=== PATIENT | female | born 1965 | race Caucasian/White ===

== ENCOUNTER → 2020-04-20 | Outpatient (CLI) | payer MEDICAID ==
[~2020-04-20] MED LIST: RT-ALBUTEROL SULF 2.5 MG/3 ML PRE-MIX VIAL INH ONE
== END ==
LOC: RT 14:35
PROVIDERS: ATTEND Nurse Practitioner Family
DX: Z12.31 Encounter for screening mammogram for malignant neoplasm of breast (principal); J45.909 Unspecified asthma, uncomplicated
CPT/HCPCS: 77063; 77067; 94060; 94726; 94729

== ENCOUNTER 2020-07-14 19:49 | Emergency (ER) | payer MEDICAID ==
[~2020-07-14] VITALS: Ht 162 cm; Wt 56.0 kg
--- NOTE | 2020-07-14 20:08 | ED General ---
General Stated Complaint: WORSENING COVID SYMPTOMS/COVID TEST UNK Source of Information: Patient Exam Limitations: No Limitations History of Present Illness Date Seen by Provider: Jul 14, 2020 Time Seen by Provider: 20:07 Initial Comments To ER with cough shortness of breath sore throat malaise since Saturday. She was swabbed for rotavirus on Saturday at [facility] but doesn't have the results yet. No fevers. She does have a history of COPD. Timing/Duration: 1-2 Days Severity: Moderate Associated Systoms: Cough Allergies and Home Medications Allergies Coded Allergies: Penicillins (Unverified Allergy, Severe, Hives, 07/14/20) Patient Home Medication List Home Medication List Reviewed: Yes Review of Systems Review of Systems Constitutional: see HPI; No chills, No fever; malaise, weakness EENTM: see HPI Respiratory: see HPI, cough Cardiovascular: no symptoms reported Genitourinary: no symptoms reported Musculoskeletal: no symptoms reported Skin: no symptoms reported Psychiatric/Neurological: No Symptoms Reported Hematologic/Lymphatic: No Symptoms Reported Immunological/Allergic: no symptoms reported Physical Exam Vital Signs Vital Signs - First Documented 07/14/20 20:10 Temp 37.1 Pulse 111 Resp 20 B/P (MAP) 144/82 (102) Pulse Ox 97 Capillary Refill : Height, Weight, BMI Height: '" Weight: lbs. oz. kg; BMI Method: General Appearance: No Apparent Distress, WD/WN Eyes: Bilateral Eye Normal Inspection, Bilateral Eye PERRL, Bilateral Eye EOMI Neck: Full Range of Motion, Normal Inspection Respiratory: No Accessory Muscle Use, No Respiratory Distress, Decreased Breath Sounds, Wheezing Cardiovascular: Regular Rate, Rhythm, Normal Peripheral Pulses Gastrointestinal: Non Tender, Soft Extremity: Normal Capillary Refill, Normal Inspection Neurologic/Psychiatric: Alert, Oriented x3 Skin: Normal Color, Warm/Dry Progress/Results/Core Measures Suspected Sepsis SIRS Temperature: Pulse: Respiratory Rate: Laboratory Tests 07/14/20 20:09: White Blood Count 11.5H Blood Pressure / Mean: Laboratory Tests 07/14/20 20:09: Creatinine 0.98, Platelet Count 204, Total Bilirubin 0.5 Results/Orders Lab Results Laboratory Tests Test 07/14/20 20:09 Range/Units White Blood Count 11.5 H 4.3-11.0 10^3/uL Red Blood Count 4.44 3.80-5.11 10^6/uL Hemoglobin 13.7 11.5-16.0 g/dL Hematocrit 41 35-52 % Mean Corpuscular Volume 92 80-99 fL Mean Corpuscular Hemoglobin 31 25-34 pg Mean Corpuscular Hemoglobin Concent 34 32-36 g/dL Red Cell Distribution Width 12.1 10.0-14.5 % Platelet Count 204 130-400 10^3/uL Mean Platelet Volume 9.3 9.0-12.2 fL Immature Granulocyte % (Auto) 1 % Neutrophils (%) (Auto) 77 H 42-75 % Lymphocytes (%) (Auto) 11 L 12-44 % Monocytes (%) (Auto) 8 0-12 % Eosinophils (%) (Auto) 3 0-10 % Basophils (%) (Auto) 0 0-10 % Neutrophils # (Auto) 8.9 H 1.8-7.8 10^3/uL Lymphocytes # (Auto) 1.3 1.0-4.0 10^3/uL Monocytes # (Auto) 0.9 0.0-1.0 10^3/uL Eosinophils # (Auto) 0.4 H 0.0-0.3 10^3/uL Basophils # (Auto) 0.0 0.0-0.1 10^3/uL Immature Granulocyte # (Auto) 0.1 0.0-0.1 10^3/uL Sodium Level 139 135-145 MMOL/L Potassium Level 3.8 3.6-5.0 MMOL/L Chloride Level 101 98-107 MMOL/L Carbon Dioxide Level 25 21-32 MMOL/L Anion Gap 13 5-14 MMOL/L Blood Urea Nitrogen 10 7-18 MG/DL Creatinine 0.98 0.60-1.30 MG/DL Estimat Glomerular Filtration Rate 58 BUN/Creatinine Ratio 10 Glucose Level 102 70-105 MG/DL Calcium Level 9.5 8.5-10.1 MG/DL Corrected Calcium 9.1 8.5-10.1 MG/DL Total Bilirubin 0.5 0.1-1.0 MG/DL Aspartate Amino Transf (AST/SGOT) 18 5-34 U/L Alanine Aminotransferase (ALT/SGPT) 22 0-55 U/L Alkaline Phosphatase 117 40-136 U/L C-Reactive Protein High Sensitivity 8.38 H 0.00-0.50 MG/DL B-Type Natriuretic Peptide < 10.0 <100.0 PG/ML Total Protein 8.3 H 6.4-8.2 GM/DL Albumin 4.5 3.2-4.5 GM/DL My Orders Orders - BREANNE SHEFFIELD APRN Cbc With Automated Diff (07/14/20 19:53) Hs C Reactive Protein (07/14/20 19:53) BNP (07/14/20 19:53) Comprehensive Metabolic Panel (07/14/20 19:53) Chest 1 View, Ap/Pa Only (07/14/20 19:53) Covid 19 Inhouse Test (07/14/20 19:53) Albuterol Inhaler (Ventolin Hfa) (07/14/20 22:00) Vital Signs/I&O 07/14/20 20:10 Temp 37.1 Pulse 111 Resp 20 B/P (MAP) 144/82 (102) Pulse Ox 97 Capillary Refill : Diagnostic Imaging Diagonstic Imaging: Xray Plain Films/CT/US/NM/MRI: chest Comments NAME: YOLANDA MON [facility] REC#: [id number] PT STATUS: REG ER : 1965 PHYSICIAN: BREANNE SHEFFIELD APRN ADMIT DATE: 07/14/20/ER Draft Date of Exam:07/14/20 CHEST 1 VIEW, AP/PA ONLY INDICATION: Cough. COMPARISON: None. EXAMINATION: Single view of the chest was obtained. FINDINGS: There is some blunting of the right costophrenic angle which may be atelectasis. Otherwise, lungs are clear. The heart is normal. There is no pneumothorax or effusion. There is some hyperexpansion, likely COPD. Osseous structures are normal. IMPRESSION: Probable atelectasis right base. Follow-up recommended. Dictated on workstation # [id number] Dict: 07/14/202025 Trans: 07/14/202031 [facility] [id number] Interpreted by: JAD ALATORRE Electronically signed by: Departure Impression Primary Impression: RLL pneumonia Qualified Codes: J18.9 - Pneumonia, unspecified organism Disposition: 01 HOME, SELF-CARE Condition: Stable Departure-Patient Inst. Decision time for Depature: 20:46 Referrals: [facility] (PCP/Family) Primary Care Physician Patient Instructions: Pneumonia, Adult (DC) Add. Discharge Instructions: 1. Steroids and antibiotics as directed 2. Return to ER for any worsening symptoms 3. Follow up with your doctor next week Scripts Albuterol Sulfate (PROAIR HFA) 1 Puff Puff 2 PUFF IH Q4H PRN for SHORTNESS OF BREATH, #1 PUFF 1 PUFF = 90 MCG Prov: BREANNE SHEFFIELD APRN 07/14/20 Prednisone (Prednisone) 20 Mg Tab 40 MG PO DAILY, #6 TAB 0 Refills Prov: BREANNE SHEFFIELD APRN 07/14/20 Cefdinir (Cefdinir) 300 Mg Capsule 300 MG PO BID, #14 CAP Prov: BREANNE SHEFFIELD APRN 07/14/20 BREANNE SHEFFIELD APRN Jul 14, 2020 20:08
[2020-07-14 20:14] LABS: BASOPHILS % (AUTO) 0 % (0-10); EOSINOPHILS # (AUTO) 0.4 10^3/uL (0.0-0.3); EOSINOPHILS % (AUTO) 3 % (0-10); HEMATOCRIT 41 % (35-52); HEMOGLOBIN 13.7 g/dL (11.5-16.0); LYMPHOCYTES # (AUTO) 1.3 10^3/uL (1.0-4.0); LYMPHOCYTES % (AUTO) 11 % (12-44); MEAN CORPUSCULAR HEMOGLOBIN 31 pg (25-34); MEAN CORPUSCULAR HGB CONC 34 g/dL (32-36); MEAN CORPUSCULAR VOLUME 92 fL (80-99); MEAN PLATELET VOLUME 9.3 fL (9.0-12.2); MONOCYTES # (AUTO) 0.9 10^3/uL (0.0-1.0); MONOCYTES % (AUTO) 8 % (0-12); NEUTROPHILS # (AUTO) 8.9 10^3/uL (1.8-7.8); NEUTROPHILS % (AUTO) 77 % (42-75); PLATELET COUNT 204 10^3/uL (130-400); WHITE BLOOD COUNT 11.5 10^3/uL (4.3-11.0)
[2020-07-14 20:33] LABS: ALBUMIN 4.5 GM/DL (3.2-4.5); BILIRUBIN,TOTAL 0.5 MG/DL (0.1-1.0); CALCIUM 9.5 MG/DL (8.5-10.1); CREATININE SERUM 0.98 MG/DL (0.60-1.30); POTASSIUM 3.8 MMOL/L (3.6-5.0); TOTAL PROTEIN 8.3 GM/DL (6.4-8.2)
--- NOTE | 2020-07-14 20:33 | Diagnostic Imaging Report ---
INDICATION: Cough. COMPARISON: None. EXAMINATION: Single view of the chest was obtained. FINDINGS: There is some blunting of the right costophrenic angle which may be atelectasis. Otherwise, lungs are clear. The heart is normal. There is no pneumothorax or effusion. There is some hyperexpansion, likely COPD. Osseous structures are normal. IMPRESSION: Probable atelectasis right base. Follow-up recommended. Dictated by: Dictated on workstation # [id number]
[2020-07-14] MEDS ORDERED: CEFD300C3 PO (20:47)
[2020-07-14] MEDS ORDERED: PRD20T PO (20:47)
[2020-07-14] MEDS ORDERED: RT-ALBUINH IH (20:47)
[2020-07-14] MEDS ORDERED: cefTRIAXone FOR IV USE 1,000 MG in WATER (STERILE) FOR INJECTION 10 ML IV ONE (21:00)
[2020-07-14 21:11] VITALS: BP 128/69
[2020-07-14] MEDS ORDERED: RT-ALBUTEROL INHALER HFA (VENTOLIN HFA) 18 GM IH SCH (22:00)
== END 2020-07-14 21:12 | disposition home or self-care (01) ==
LOC: EDUNIT# 19:49 → ER 19:51
DX: J18.1 Lobar pneumonia, unspecified organism (principal); Z20.828 Contact with and (suspected) exposure to other viral communicable diseases; Z88.0 Allergy status to penicillin
CPT/HCPCS: 71045; 80053; 83880; 85025; 86141; 94640; 99284; U0002; 36415; 87635

== ENCOUNTER 2020-10-02 10:29 | Emergency (ER) | payer MEDICAID ==
[~2020-10-02] VITALS: Ht 162.5 cm; Wt 58.9 kg
[~2020-10-02 10:29] MED LIST changes: +CEFD300C3 PO; +PRD20T PO; +RT-ALBUINH IH; -RT-ALBUTEROL SULF 2.5 MG/3 ML PRE-MIX VIAL INH ONE
[2020-10-02 10:35] VITALS: BP 137/81
[2020-10-02] MEDS ORDERED: KETOROLAC 60 MG/2 ML VIAL IM ONE (11:00)
[2020-10-02] MEDS ORDERED: ORPHENADRINE 60 MG/2 ML (NORFLEX) AMP (ED ONLY) IM ONE (11:00)
[2020-10-02 11:07] LABS: BILIRUBIN,URINE NEGATIVE (NEGATIVE); CLARITY,URINE CLEAR; COLOR,URINE YELLOW; GLUCOSE, URINE (UA) NEGATIVE (NEGATIVE); KETONES,URINE NEGATIVE (NEGATIVE); LEUKOCYTE ESTERASE ,URINE NEGATIVE (NEGATIVE); NITRITE,URINE NEGATIVE (NEGATIVE); PROTEIN,URINE NEGATIVE (NEGATIVE)
[2020-10-02] MEDS ORDERED: CYCL10TA9 PO (11:08)
--- NOTE | 2020-10-02 11:08 | ED Fall/Injury ---
General Chief Complaint: Back Problems Stated Complaint: FALL, BACK PAIN Nursing Triage Note: Pt ambulatory to ED. Pt reports dog's leash got wrapped around pt's L leg on ' causing pt to fall on R side. Pt reports lower back pain that radiates down the R leg and c/o lower abdominal pain. Pt describes pain in back as "pinching." Pt does report head hit concrete in fall, but denies LOC or complaints related to head at this time. Source: patient Exam Limitations: no limitations History of Present Illness Date Seen by Provider: Oct 02, 2020 Time Seen by Provider: 10:45 Initial Comments RightPatient presents to the ER by private conveyance from home with chief complaint of 4 days ago she was walking her dog and the leash tripped her onto her right side. She has had minor problems with her back visiting the chiropractor in the past but no surgeries or major imaging. She has not had any fractures or recent trauma otherwise. She has pain and spasm side of her back radiating down into her suprapubic pelvis area. She denies dysuria or hematuria. No history of kidney stone. She says she is not having nausea fever chills cough shortness of air. She does not have saddle anesthesia but she does have some paresthesias going down her right buttock to the level of the mid thigh. She has tenderness worse on her right and no midline low back tenderness. She took 2 ibuprofen earlier today which seemed to help some. Allergies and Home Medications Allergies Coded Allergies: Penicillins (Unverified Allergy, Severe, Hives, 07/14/20) Home Medications Albuterol Sulfate 1 Puff Puff, 2 PUFF IH Q4H PRN for SHORTNESS OF BREATH 1 PUFF = 90 MCG Prescribed by: BREANNE SHEFFIELD on 07/14/202046 Cefdinir 300 Mg Capsule, 300 MG PO BID Prescribed by: BREANNE SHEFFIELD on 07/14/202046 Prednisone 20 Mg Tab, 40 MG PO DAILY Prescribed by: BREANNE SHEFFIELD on 07/14/202046 Patient Home Medication List Home Medication List Reviewed: Yes Review of Systems Review of Systems Constitutional: No chills, No fever Eyes: Denies Blindness, Denies Drainage Ears, Nose, Mouth, Throat: denies ear pain, denies ear discharge Respiratory: No cough, No short of breath Cardiovascular: No edema, No Hx of Intervention Gastrointestinal: No abdominal pain, No nausea, No vomiting Genitourinary: No discharge, No dysuria Musculoskeletal: see HPI, back pain All Other Systems Reviewed Negative Unless Noted: Yes Past Ogtongs-Zsxhfg-Slrquo Hx Patient Social History Alcohol Use: Occasionally Uses Recreational Drug Use: Yes Drug of Choice: marijuana, meth Smoking Status: Former Smoker Type Used: Cigarettes Former Smoker, Quit: Jun 30, 2017 Recent Foreign Travel: No Contact w/Someone Who Travel: No Recent Infectious Disease Expo: No Recent Hopitalizations: No Immunizations Up To Date Date of Influenza Vaccine: Jun 14, 2020 Seasonal Allergies Seasonal Allergies: Yes Past Medical History Surgeries: Yes Tubal Ligation Respiratory: Yes COPD Currently Using CPAP: No Currently Using BIPAP: No Cardiac: No Neurological: No [employer] History: Tubal Ligation Genitourinary: No Gastrointestinal: Yes Gastroesophageal Reflux Musculoskeletal: No Endocrine: No HEENT: No Cancer: No Psychosocial: Yes Depression Integumentary: No Physical Exam Vital Signs Vital Signs - First Documented 10/02/20 10:35 Temp 36.2 Pulse 87 Resp 15 B/P (MAP) 137/81 (99) Pulse Ox 97 O2 Delivery Room Air Capillary Refill : Less Than 3 Seconds Height, Weight, BMI Height: '" Weight: lbs. oz. kg; 22.00 BMI Method: General Appearance: WD/WN, mild distress HEENT: PERRL/EOMI, pharynx normal Neck: full range of motion, normal inspection Cardiovascular: normal peripheral pulses, regular rate, rhythm Respiratory: no respiratory distress, no accessory muscle use Gastrointestinal: non tender, soft Back: normal inspection, no CVA tenderness, no vertebral tenderness (No step- off or deformity), muscle spasm (Right side worse than left) Extremities: normal range of motion, no calf tenderness Neurologic/Psychiatric: alert, normal mood/affect, oriented x 3 Skin: normal color, warm/dry [place] Coma Score Best Eye Response: (4) Open Spontaneously Best Verbal Response: (5) Oriented Best Motor Response: (6) Obeys Commands Igles[place] Total: 15 Progress/Results/Core Measures Results/Orders My Orders Orders - KANDICE REHMAN Ketorolac Injection (Toradol Injection) (10/02/20 11:00) Orphenadrine Inj (Ed Only) (Norflex Inje (10/02/20 11:00) Ua Culture If Indicated (10/02/20 10:59) Vital Signs/I&O 10/02/20 10:35 Temp 36.2 Pulse 87 Resp 15 B/P (MAP) 137/81 (99) Pulse Ox 97 O2 Delivery Room Air Blood Pressure Mean: 99 Progress Progress Note : Time: 11:04 Progress Note Fall with new onset lumbago, paraspinous muscle spasms and sciatica. No red flags. Plan to get a urinalysis for her suprapubic discomfort. She has a nonsurgical abdomen with normal vital signs. Will instruct her to follow-up with physical therapy if her symptoms not improving in a week. We will give her return precautions. We will also give her Norflex, a prescription for cyclobenzaprine and Toradol. Departure Impression Primary Impression: Lumbago with sciatica, right side Qualified Codes: M54.41 - Lumbago with sciatica, right side Additional Impressions: Fall Qualified Codes: W19.XXXA - Unspecified fall, initial encounter Lumbar paraspinal muscle spasm Disposition: HOME, SELF-CARE Condition: Stable Departure-Patient Inst. Decision time for Depature: 11:06 Referrals: [facility] (PCP/Family) Primary Care Physician Patient Instructions: Back Muscle Strain (DC), Sciatica, Back Flexion Stretching Exercises, Using Cold for Pain, Using Heat for Pain Add. Discharge Instructions: Drink plenty of fluids. Tylenol 1000 mg every 8 hours as necessary for pain. Ibuprofen 800 mg every 8 hours as necessary for pain. You may benefit from using ibuprofen [id number] regardless of if it helps your pain as it will reduce inflammation and help you feel better sooner. Cyclobenzaprine 1 tablet every 8 hours as necessary for muscle spasms in your back. This will cause drowsiness. If you not seeing improvement in the first 1 to 2 weeks then you should follow- up with either a primary care doctor or you may get a no upfront cost initial evaluation by [facility] by calling for an appointment at . Heating pads can be helpful for pain. Ice your back for the first couple days for 20 minutes every 2 hours while awak e. Topical creams such as icy hot, Biofreeze or capsaicin oil can be helpful. All discharge instructions reviewed with patient and/or family. Voiced understanding. Scripts Cyclobenzaprine HCl (Cyclobenzaprine HCl) 10 Mg Tablet 10 MG PO Q8H PRN for SPASMS, #15 TAB 0 Refills Prov: KANDICE REHMAN 10/02/20 KANDICE REHMAN Oct 02, 2020 11:08
[2020-10-02 11:25] LABS: BACTERIA,URINE NEGATIVE /HPF; SQUAMOUS EPITHELIAL CELL,UR 0-2 /HPF; WBC,URINE 0-2 /HPF
== END 2020-10-02 11:38 | disposition home or self-care (01) ==
LOC: EDUNIT# 10:29 → ER 10:31
DX: M54.41 Lumbago with sciatica, right side (principal); M62.830 Muscle spasm of back; J44.9 Chronic obstructive pulmonary disease, unspecified; R40.2360 Coma scale, best motor response, obeys commands, unspecified time; R40.2140 Coma scale, eyes open, spontaneous, unspecified time; R40.2250 Coma scale, best verbal response, oriented, unspecified time; Z87.891 Personal history of nicotine dependence; Z79.52 Long term (current) use of systemic steroids; Z88.0 Allergy status to penicillin; W01.198A Fall on same level from slipping, tripping and stumbling with subsequent striking against other object, initial encounter; Y93.K1 Activity, walking an animal
CPT/HCPCS: 81000; 99284

== ENCOUNTER → 2021-05-15 | Outpatient (CLI) | payer MEDICAID ==
[~2021-05-15] MED LIST changes: +CYCL10TA9 PO
--- NOTE | 2021-05-15 12:58 | Diagnostic Imaging Report ---
Indication: Routine screening. Comparison is made with prior mammogram from 04/20/2020 and 03/16/2019. 2-D and 3-D bilateral screening mammography was performed with CAD. Scattered fibroglandular densities are identified bilaterally. Fibronodular parenchymal pattern is stable. No spiculated mass or malignant-appearing microcalcifications are seen. Axillae are unremarkable. IMPRESSION: BI-RADS Category 2 No mammographic features suspicious for malignancy are identified. ACR BI-RADS Category 2: Benign findings. Result letter will be mailed to the patient. Note: At least 10% of breast cancer is not imaged by mammography. Dictated by: Dictated on workstation # [id number]
== END ==
LOC: RAD 09:29
PROVIDERS: ATTEND Nurse Practitioner Family
DX: Z12.31 Encounter for screening mammogram for malignant neoplasm of breast (principal)
CPT/HCPCS: 77063; 77067

== ENCOUNTER 2022-01-26 17:59 | Emergency (ER) | payer MEDICAID ==
[~2022-01-26] VITALS: Ht 162.6 cm; Wt 65.8 kg
[~2022-01-26 17:59] MED LIST changes: +CYCL10TA25 PO; -CYCL10TA9 PO
[2022-01-26] MEDS ORDERED: NS IV 500 ML 500 ML IV ONE (18:30)
--- NOTE | 2022-01-26 18:33 | ED Headache ---
General Chief Complaint: Head/Cervical Problems Stated Complaint: HEAD PAIN X 3 DAYS/L SIDE NUMBNESS Source: patient Exam Limitations: no limitations History of Present Illness Date Seen by Provider: Jan 26, 2022 Time Seen by Provider: 18:05 Initial Comments The patient presents ER by private conveyance from home with chief complaint that Saturday, 2 days prior to arrival she was just sitting down in her easy chair in her living room when she started having a worst headache of her life, 10 out of 10. She says she has no history of migraines or chronic headaches. She has had mid headaches before but nothing like this. She said it started low in the back of her neck and for she thought was one of her chronic pinched nerves but it traveled up her occiput bilaterally to the top of her parietal scalp and landed in her frontal forehead. She said this headache has been coming on and off a few hours at a time for the past couple days. Today she was standing at the sink doing dishes when it came on and she had a few momentary seconds of blurred vision bilaterally as well as today she started experiencing some tingling pins and needle sensation in her left arm all the way down to her fingertips as well as her left leg down to her foot. She has not had back surgery. She has not had trauma. She is not on blood thinners. He has a history of hypertension hyperlipidemia and is a daily cannabis user. She denies recreational drug use. She does drink about 6 shots of whiskey on a daily basis usually at night. She is on B12 and followed by Annabel Rooney for primary care. She is on statin. She does not have a history of heart disease stroke although her father has a history of stents either in his heart or his neck and her sister of a heart attack at age 48. The patient does not use nicotine products. She is not having any nausea fevers chills cough shortness of air. Allergies and Home Medications Allergies Coded Allergies: Penicillins (Unverified Allergy, Severe, Hives, 07/14/20) Patient Home Medication List Home Medication List Reviewed: Yes Albuterol Sulfate (Proair Hfa) 1 Puff Puff, 2 PUFF IH Q4H PRN for SHORTNESS OF BREATH Prescribed by: BREANNE SHEFFIELD on 07/14/202046 Cefdinir (Cefdinir) 300 Mg Capsule, 300 MG PO BID Prescribed by: BREANNE SHEFFIELD on 07/14/202046 Cyclobenzaprine HCl (Cyclobenzaprine HCl) 10 Mg Tablet, 10 MG PO Q8H PRN for SPASMS Prescribed by: KANDICE REHMAN on 10/02/20 110 Ondansetron (Ondansetron Odt) 4 Mg Tab.rapdis, 4-8 MG PO Q6H PRN for NAUSEA/VOMITING Prescribed by: KANDICE REHMAN on 01/26/222234 Prednisone (Prednisone) 20 Mg Tab, 40 MG PO DAILY Prescribed by: BREANNE SHEFFIELD on 07/14/202046 Review of Systems Review of Systems Constitutional: No chills, No diaphoresis Eyes: Denies Blindness, Denies Blurred Vision Ears, Nose, Mouth, Throat: denies ear pain, denies ear discharge Respiratory: No cough, No short of breath Cardiovascular: No chest pain, No edema Gastrointestinal: No abdominal pain, No constipation, No diarrhea Genitourinary: No discharge, No dysuria : No Musculoskeletal: No back pain, No joint pain All Other Systems Reviewed Negative Unless Noted: Yes Past Pwedepu-Dfylew-Udmuzg Hx Patient Social History Tobacco Use?: No Smoking Status: Never a Smoker Smokeless Tobacco Frequency: Never a User Use of E-Cig and/or Vaping dev: No Use of E-Cig and/or Vaping Casimiro: Never a User Substance use?: Yes Substance type: Marijuana Substance frequency: Daily Alcohol Use?: Yes Alcohol type: Hard Liquor Alcohol Frequency: Daily Pt feels they are or have been: No Seasonal Allergies Seasonal Allergies: Yes Past Medical History Surgeries: Yes Tubal Ligation Respiratory: Yes COPD Currently Using CPAP: No Currently Using BIPAP: No Cardiac: No Neurological: No PROCESS DEVELOPER History: Tubal Ligation Genitourinary: No Gastrointestinal: Yes Gastroesophageal Reflux Musculoskeletal: No Endocrine: No HEENT: No Cancer: No Psychosocial: Yes Depression Integumentary: No Physical Exam Vital Signs Vital Signs - First Documented 01/26/22 01/26/22 18:08 22:40 Temp 36.0 Pulse 103 Resp 15 B/P (MAP) 134/72 (92) Pulse Ox 96 O2 Delivery Room Air Capillary Refill : Height, Weight, BMI Height: '" Weight: lbs. oz. kg; 22.00 BMI Method: General Appearance: WD/WN, no apparent distress HEENT: PERRL/EOMI, normal ENT inspection, TMs normal; No pharynx normal (Dry oral mucous) Neck: non-tender, full range of motion, supple, normal inspection Cardiovascular: normal peripheral pulses, regular rate, rhythm, no edema Respiratory: lungs clear, normal breath sounds, no respiratory distress, no accessory muscle use Gastrointestinal: normal bowel sounds, non tender, soft Extremities: normal range of motion, non-tender, normal capillary refill Psychiatric: alert, oriented x 3 Crainal Nerves: normal hearing, normal speech, PERRL (No horizontal started nystagmus) Motor/Sensory: no motor deficit, no sensory deficit, no pronator drift Skin: normal color, warm/dry Onset of Symptoms Date of Onset of Symptoms: Jan 24, 2022 Symptoms onset unknown: Yes NIH Stroke Scale Assessment Select: Initial Level of Consciousness: 0=Alert (0), Level of Consciousness- Questions: 0=Answers both month/age (0), LOC Commands: 0=Performs both tasks (0), Gaze: Normal (0), Visual Etienne: 0=No visual loss (0), Facial Movement (Facial Paresis): 0=Normal symmetrical mnt (0), Motor Function-Arms Right: 0=No drift (0), Motor Function-Arms Left: 0=No drift (0), Motor Function-Legs Right: 0=No drift (0), Motor Function-Legs Left: 0=No drift (0), Limb Ataxia: 0=Absent (0), Sensory: 0=Normal:no loss (0), Best Language: 0=No aphasia (0), Dysarthria: 0=Normal (0), Extinction & Inattention: 0=No abnormality (0), Total: 0 Stroke Thrombolytic Exclusion Age 18 or Over: Yes IV - TPa Received IV - TPa Procedure Performed?: No (No lateralizing symptoms. No benefit to outweigh the risk. We will start the window of time.) Progress/Results/Core Measures Results/Orders Lab Results Laboratory Tests Test 01/26/22 18:15 01/26/22 18:45 01/26/22 19:35 01/26/22 21:09 Range/Units White Blood Count 6.7 4.3-11.0 10^3/uL Red Blood Count 4.19 3.80-5.11 10^6/uL Hemoglobin 13.9 11.5-16.0 g/dL Hematocrit 40 35-52 % Mean Corpuscular Volume 95 80-99 fL Mean Corpuscular Hemoglobin 33 25-34 pg Mean Corpuscular Hemoglobin Concent 35 32-36 g/dL Red Cell Distribution Width 11.9 10.0-14.5 % Platelet Count 184 130-400 10^3/uL Mean Platelet Volume 9.7 9.0-12.2 fL Immature Granulocyte % (Auto) 1 % Neutrophils (%) (Auto) 62 42-75 % Lymphocytes (%) (Auto) 24 12-44 % Monocytes (%) (Auto) 7 0-12 % Eosinophils (%) (Auto) 6 0-10 % Basophils (%) (Auto) 1 0-10 % Neutrophils # (Auto) 4.1 1.8-7.8 10^3/uL Lymphocytes # (Auto) 1.6 1.0-4.0 10^3/uL Monocytes # (Auto) 0.5 0.0-1.0 10^3/uL Eosinophils # (Auto) 0.4 H 0.0-0.3 10^3/uL Basophils # (Auto) 0.0 0.0-0.1 10^3/uL Immature Granulocyte # (Auto) 0.0 0.0-0.1 10^3/uL Prothrombin Time 12.7 12.2-14.7 SEC INR Comment 0.9 0.8-1.4 Activated Partial Thromboplast Time 27 24-35 SEC Sodium Level 141 135-145 MMOL/L Potassium Level 3.8 3.6-5.0 MMOL/L Chloride Level 102 98-107 MMOL/L Carbon Dioxide Level 23 21-32 MMOL/L Anion Gap 16 H 5-14 MMOL/L Blood Urea Nitrogen 13 7-18 MG/DL Creatinine 1.07 0.60-1.30 MG/DL Estimat Glomerular Filtration Rate 60 BUN/Creatinine Ratio 12 Glucose Level 86 70-105 MG/DL Calcium Level 9.4 8.5-10.1 MG/DL Corrected Calcium 9.0 8.5-10.1 MG/DL Total Bilirubin 0.5 0.1-1.0 MG/DL Aspartate Amino Transf (AST/SGOT) 37 H 5-34 U/L Alanine Aminotransferase (ALT/SGPT) 52 0-55 U/L Alkaline Phosphatase 119 40-136 U/L C-Reactive Protein High Sensitivity 0.57 H 0.00-0.50 MG/DL Total Protein 7.5 6.4-8.2 GM/DL Albumin 4.5 3.2-4.5 GM/DL Serum Alcohol < 10 <10 MG/DL Influenza Type A (RT-PCR) Not Detected Not Detecte Influenza Type B (RT-PCR) Not Detected Not Detecte SARS-CoV-2 RNA (RT-PCR) Not Detected Not Detecte Urine Color YELLOW Urine Clarity CLEAR Urine pH 7.5 5-9 Urine Specific [place] 1.010 L 1.016-1.022 Urine Protein NEGATIVE NEGATIVE Urine Glucose (UA) NEGATIVE NEGATIVE Urine Ketones NEGATIVE NEGATIVE Urine Nitrite NEGATIVE NEGATIVE Urine Bilirubin NEGATIVE NEGATIVE Urine Urobilinogen 2.0 < = 1.0 MG/DL Urine Leukocyte Esterase TRACE H NEGATIVE Urine RBC (Auto) NEGATIVE NEGATIVE Urine RBC NONE /HPF Urine WBC 2-5 /HPF Urine Squamous Epithelial Cells 2-5 /HPF Urine Crystals NONE /LPF Urine Bacteria FEW H /HPF Urine Casts NONE /LPF Urine Mucus SMALL H /LPF Urine Yeast FEW H /HPF Urine Culture Indicated YES Urine Opiates Screen NEGATIVE NEGATIVE Urine Oxycodone Screen NEGATIVE NEGATIVE Urine Methadone Screen NEGATIVE NEGATIVE Urine Propoxyphene Screen NEGATIVE NEGATIVE Urine Barbiturates Screen NEGATIVE NEGATIVE Ur Tricyclic Antidepressants Screen NEGATIVE NEGATIVE Urine Phencyclidine Screen NEGATIVE NEGATIVE Urine Amphetamines Screen NEGATIVE NEGATIVE Urine Methamphetamines Screen NEGATIVE NEGATIVE Urine Benzodiazepines Screen NEGATIVE NEGATIVE Urine Cocaine Screen NEGATIVE NEGATIVE Urine Cannabinoids Screen POSITIVE H NEGATIVE CSF Tube Number 4 CSF Appearance CLEAR CSF Color COLORLESS CSF WBC 0 0-5 CELLS CSF RBC 18 H 0-0 CELLS CSF Lymphocytes % CSF Mononuclear WBCs % CSF Polynuclear WBCs % CSF Glucose 55 50-80 MG/DL My Orders Orders - KANDICE REHMAN Ed Iv/Invasive Line Start (01/26/22 18:24) Ns Iv 500 Ml (Sodium Chloride 0.9%) (01/26/22 18:30) Cbc With Automated Diff (01/26/22 18:24) Comprehensive Metabolic Panel (01/26/22 18:24) Hs C Reactive Protein (01/26/22 18:24) Continuous Ekg Monitoring (01/26/22 18:24) Ekg Tracing (01/26/22 18:24) Ct Head Wo (01/26/22 18:24) Ua Culture If Indicated (01/26/22 18:24) Drug Screen Stat (Urine) (01/26/22 18:24) Alcohol (01/26/22 18:24) Protime With Inr (01/26/22 18:24) Partial Thromboplastin Time (01/26/22 18:24) Covid 19 Inhouse Test (01/26/22 18:33) Influenza A And B By Pcr (01/26/22 18:33) Chest 1 View, Ap/Pa Only (01/26/22 18:37) Urine Culture (01/26/22 19:35) Ct Angio Head/Neck (01/26/22 20:15) Iohexol Injection (Omnipaque 350 Mg/Ml 1 (01/26/22 20:30) Received Contrast (Hold Metformin- Contr (01/26/22 20:30) Ns (Ivpb) (Sodium Chloride 0.9% Ivpb Bag (01/26/22 20:30) Lorazepam Injection (Ativan Injection) (01/26/22 20:30) Csf Culture (01/26/22 20:34) Csf Cell Count (01/26/22 20:34) Enterovirus Pcr (Csf Or Plasma (01/26/22 20:34) Csf Glucose (01/26/22 20:34) Lidocaine 1% Inj 20 Ml (Xylocaine 1% Inj (01/26/22 20:54) Medications Given in ED Current Medications Medications Dose Ordered Sig/Jhony Route Start Time Stop Time Status Last Admin Dose Admin Lidocaine HCl 20 ml STK-MED ONCE .ROUTE 01/26/22 20:54 01/26/22 20:58 DC 01/26/22 20:59 20 ML Lorazepam 1 mg ONCE ONCE IVP 01/26/22 20:30 01/26/22 20:31 DC 01/26/22 20:48 1 MG Sodium Chloride 500 ml @ 0 mls/hr Q0M ONCE IV 01/26/22 18:30 01/26/22 18:31 DC 01/26/22 18:38 999 MLS/HR Vital Signs/I&O 01/26/22 01/26/22 18:08 22:40 Temp 36.0 36.5 Pulse 103 76 Resp 15 16 B/P (MAP) 134/72 (92) 117/61 Pulse Ox 96 O2 Delivery Room Air Room Air 01/27/22 00:00 Intake Total 500 ml Balance 500 ml Progress Progress Note #1: Time: 18:44 Progress Note Her symptoms do not seem consistent with an ischemic stroke however with her worst headache of her life we are concerned about she is having a subarachnoid hemorrhage. We will check some labs, markers of inflammation, get a CT of her head and if that does not show any bleeds we will get a lumbar puncture. CT angiogram will also be useful for evaluatinG vessels of the head and neck. She only rates her pain as a 5 out of 10 presently and is okay with holding off on pain medicines at this time. If we rule out bleeds or ischemia then Toradol would probably be a good choice for her COVID, influenza swabs as these can also cause significant headache syndromes. Progress Note #2: Time: 20:[address] looks okay. CT angio is going now. Plan to ask anesthesia to get a lumbar puncture so we can get some CSF studies to rule out viral meningitis, with much less likely bacterial meningitis and subarachnoid hemorrhage. We have discussed this with the patient and she is okay with it but she is having some anxiety so 1 mg of Ativan IV was ordered. Nursing to get a consent signed. Progress Note #3: Time: 21:[address] angiogram unremarkable. Opening pressure 18 cm water pressure. Initial ECG Impression Date: Jan 26, 2022 Initial ECG Impression Time: 18:42 Initial ECG Rate: 84 Initial ECG Rhythm: Normal Sinus Initial ECG Intervals: Normal Initial ECG Impression: Normal Initial ECG Comparisson: No Previous ECG Available Comment Normal sinus rhythm without clinically relevant ST elevation or depression Diagnostic Imaging Diagonstic Imaging: Xray Plain Films/CT/US/NM/MRI: chest Comments [facility] [place], [place] NAME: YOLANDA MON [facility] REC#: [id number] PT STATUS: REG ER : 1965 PHYSICIAN: KANDICE REHMAN MD ADMIT DATE: 01/26/22/ER Signed Date of Exam:01/26/22 CHEST 1 VIEW, AP/PA ONLY INDICATION: Head and neck pain x2 days. Left-sided tingling today.. TECHNIQUE: Single view chest 6:48 PM. CORRELATION STUDY: 07/14/2020 FINDINGS: The heart size, mediastinal configuration and pulmonary vascularity are within normal limits. The lungs are clear with no consolidating infiltrate. There is no significant effusion or pneumothorax. IMPRESSION: 1. Negative appearing single view chest. Dictated by: Dictated on workstation # [id number] Dict: 01/26/22 1857 Trans: 01/26/222005 DO Interpreted by: JALEESA QIU DO Electronically signed by: JALEESA QIU DO 01/26/222005 Reviewed: Reviewed by Ok Diagonstic Imaging: CT Plain Films/CT/US/NM/MRI: head Comments [facility] [place] [place] NAME: ELIESERYOLANDA Brianna [facility] REC#: [id number] PT STATUS: REG ER : 1965 PHYSICIAN: KANDICE REHMAN MD ADMIT DATE: 01/26/22/ER Draft Date of Exam:01/26/22 CT HEAD WO PROCEDURE: CT head without contrast. TECHNIQUE: Multiple contiguous axial images were obtained through the brain without the use of intravenous contrast. Auto Exposure Controls were utilized during the CT exam to meet ALARA standards for radiation dose reduction. INDICATION: 57-year-old female, head and neck pain x2 days. Left-sided tingling today. CORRELATION: None FINDINGS: There is no midline shift or mass effect. The ventricles and sulci are unremarkable. No evidence for acute intracranial hemorrhage, abnormal extra-axial fluid collections or cerebral edema is present. The basilar cisterns are unremarkable. The bony calvarium is intact. The visualized paranasal sinuses and mastoid air cells are clear. Incomplete closure posterior C1 arch, likely developmental. IMPRESSION: Negative appearing noncontrast CT of the head. Dictated on workstation # [id number] Dict: 01/26/22 1901 Trans: 01/26/22 190 DO Interpreted by: JALEESA QIU DO Electronically signed by: Reviewed: Reviewed by Ok Diagonstic Imaging: CT (Angiogram) Plain Films/CT/US/NM/MRI: head Comments [facility] [place] [place] NAME: ELIESERYOLANDA Brianna [facility] REC#: [id number] PT STATUS: REG ER : 1965 PHYSICIAN: KANDICE REHMAN MD ADMIT DATE: 01/26/22/ER Draft Date of Exam:01/26/22 CT ANGIO HEAD/NECK PROCEDURE: CT angiography of the head and CT angiography of the neck with and without contrast. TECHNIQUE: Contiguous noncontrast images were obtained from the skull base through the vertex. After intravenous contrast administration, helical CT angiography of the neck was performed. Source data was reformatted into 3D MIP projections. Delayed post contrast acquisition was also obtained. Auto Exposure Controls were utilized during the CT exam to meet ALARA standards for radiation dose reduction. INDICATION: 57-year-old female, head and neck pain x 2 days. Left-sided tingling today. COMPARISON: None FINDINGS: CTA NECK: Aorta: Aortic arch is limited in evaluation with artifact present. Does appear relatively normal, with standard three vessel branching pattern. Right Common/Internal/External Carotid Artery: Patent and without significant stenosis. Left Common/Internal/External Carotid Artery: Faint filling defect origin left common carotid artery likely artifact. Patent and without significant stenosis. Vertebral arteries: Dominant left vertebral artery with a very small caliber right vertebral artery. Right vertebral artery may terminate as a PICA. Non-vascular: There is a suggested deformity at the tongue, nonspecific. The airway is patent. Question of a few small upper lobe pulmonary nodules. Largest left upper lobe, 3 mm. CTA HEAD: Anterior Circulation: The intracranial internal carotid arteries are patent. The bilateral middle cerebral arteries are patent and without stenosis. The anterior cerebral arteries are patent and without stenosis. Posterior Circulation: The bilateral intracranial segments of the vertebral arteries are patent. The basilar artery is patent and without stenosis. Left posterior cerebral arteries of persistent origin. Post Contrast Head: No concerning enhancement on delayed post-contrast imaging. IMPRESSION: 1. Negative CTA of the head. 2. Negative CTA of the neck. 3. Suggested deformity at the tongue. May be projectional, however, clinical correlation is recommended. Dictated on workstation # [id number] Dict: 01/26/222106 Trans: 01/26/222119 [facility] [id number] Interpreted by: JALEESA QIU DO Electronically signed by: Departure Impression Primary Impression: Headache Qualified Codes: R51.9 - Headache, unspecified Additional Impression: Arm paresthesia, left Disposition: 01 HOME, SELF-CARE Condition: Stable Departure-Patient Inst. Decision time for Depature: 22:30 Referrals: [facility] (PCP) Primary Care Physician HAYDER ROONEY (Family) Primary Care Physician Patient Instructions: Paresthesia (DC), Headache, Adult ED Add. Discharge Instructions: Drink plenty of fluids. 2 Aleve twice a day or 4 tablets of ibuprofen 3 times a day as needed for headache and pain. Tylenol 1000 mg every 8 hours as needed for pain. Zofran 1 to 2 tablets every 6 hours under the tongue as needed for nausea or vomiting. Return to the ER for confusion, fever above 102.5 or intractable nausea and vomiting. Follow-up next week with your primary care doctor if your symptoms persist. All discharge instructions reviewed with patient and/or family. Voiced understanding. Scripts Ondansetron (Ondansetron Odt) 4 Mg Tab.rapdis 4-8 MG PO Q6H PRN for NAUSEA/VOMITING, #16 TAB 0 Refills Prov: KANDICE REHMAN 01/26/22 KANDICE REHMAN Jan 26, 2022 18:33
[2022-01-26 18:36] LABS: BASOPHILS % (AUTO) 1 % (0-10); EOSINOPHILS # (AUTO) 0.4 10^3/uL (0.0-0.3); EOSINOPHILS % (AUTO) 6 % (0-10); HEMATOCRIT 40 % (35-52); HEMOGLOBIN 13.9 g/dL (11.5-16.0); LYMPHOCYTES # (AUTO) 1.6 10^3/uL (1.0-4.0); LYMPHOCYTES % (AUTO) 24 % (12-44); MEAN CORPUSCULAR HEMOGLOBIN 33 pg (25-34); MEAN CORPUSCULAR HGB CONC 35 g/dL (32-36); MEAN CORPUSCULAR VOLUME 95 fL (80-99); MEAN PLATELET VOLUME 9.7 fL (9.0-12.2); MONOCYTES # (AUTO) 0.5 10^3/uL (0.0-1.0); MONOCYTES % (AUTO) 7 % (0-12); NEUTROPHILS # (AUTO) 4.1 10^3/uL (1.8-7.8); NEUTROPHILS % (AUTO) 62 % (42-75); PLATELET COUNT 184 10^3/uL (130-400); WHITE BLOOD COUNT 6.7 10^3/uL (4.3-11.0)
[2022-01-26 18:41] LABS: INR 0.9 (0.8-1.4); PROTHROMBIN TIME PATIENT 12.7 SEC (12.2-14.7)
[2022-01-26 18:53] LABS: ALANINE AMINOTRANSFERASE 52 U/L (0-55); ALBUMIN 4.5 GM/DL (3.2-4.5); ALKALINE PHOSPHATASE 119 U/L (40-136); BILIRUBIN,TOTAL 0.5 MG/DL (0.1-1.0); BUN/CREATININE RATIO 12; CALCIUM 9.4 MG/DL (8.5-10.1); CARBON DIOXIDE 23 MMOL/L (21-32); CHLORIDE 102 MMOL/L (98-107); CREATININE SERUM 1.07 MG/DL (0.60-1.30); GFR ESTIMATED 60; GLUCOSE 86 MG/DL (70-105); POTASSIUM 3.8 MMOL/L (3.6-5.0); SODIUM 141 MMOL/L (135-145); TOTAL PROTEIN 7.5 GM/DL (6.4-8.2)
--- NOTE | 2022-01-26 18:59 | Diagnostic Imaging Report ---
INDICATION: Head and neck pain x2 days. Left-sided tingling today.. TECHNIQUE: Single view chest 6:48 PM. CORRELATION STUDY: 07/14/2020 FINDINGS: The heart size, mediastinal configuration and pulmonary vascularity are within normal limits. The lungs are clear with no consolidating infiltrate. There is no significant effusion or pneumothorax. IMPRESSION: 1. Negative appearing single view chest. Dictated by: Dictated on workstation # [id number]
--- NOTE | 2022-01-26 19:04 | Diagnostic Imaging Report ---
PROCEDURE: CT head without contrast. TECHNIQUE: Multiple contiguous axial images were obtained through the brain without the use of intravenous contrast. Auto Exposure Controls were utilized during the CT exam to meet ALARA standards for radiation dose reduction. INDICATION: 57-year-old female, head and neck pain x2 days. Left-sided tingling today. CORRELATION: None FINDINGS: There is no midline shift or mass effect. The ventricles and sulci are unremarkable. No evidence for acute intracranial hemorrhage, abnormal extra-axial fluid collections or cerebral edema is present. The basilar cisterns are unremarkable. The bony calvarium is intact. The visualized paranasal sinuses and mastoid air cells are clear. Incomplete closure posterior C1 arch, likely developmental. IMPRESSION: Negative appearing noncontrast CT of the head. Dictated by: Dictated on workstation # [id number]
[2022-01-26 19:41] LABS: BILIRUBIN,URINE NEGATIVE (NEGATIVE); CLARITY,URINE CLEAR; COLOR,URINE YELLOW; GLUCOSE, URINE (UA) NEGATIVE (NEGATIVE); KETONES,URINE NEGATIVE (NEGATIVE); LEUKOCYTE ESTERASE ,URINE TRACE (NEGATIVE); NITRITE,URINE NEGATIVE (NEGATIVE); PH,URINE 7.5 (5-9); PROTEIN,URINE NEGATIVE (NEGATIVE)
[2022-01-26 19:55] LABS: BACTERIA,URINE FEW /HPF; YEAST,URINE FEW /HPF
[2022-01-26 20:03] LABS: AMPHETAMINE SCREEN, URINE NEGATIVE (NEGATIVE); BARBITURATE SCREEN URINE NEGATIVE (NEGATIVE); BENZODIAZEPINES SCREEN URINE NEGATIVE (NEGATIVE); CANNABINOID SCREEN, URINE POSITIVE (NEGATIVE); COCAINE SCREEN URINE NEGATIVE (NEGATIVE); METHADONE STAT NEGATIVE (NEGATIVE); OPIATE SCREEN URINE NEGATIVE (NEGATIVE); OXYCODONE STAT NEGATIVE (NEGATIVE); PROPOXYPHENE STAT NEGATIVE (NEGATIVE); TRICYCLIC ANTIDEPRESSANTS SCRE NEGATIVE (NEGATIVE)
[2022-01-26] MEDS ORDERED: NS 100 ML (IVPB) BAG IV ONE (20:30)
[2022-01-26] MEDS ORDERED: IOHEXOL 350 MG/ML 100 ML (OMNIPAQUE 350) VIAL IV ONE (20:30)
[2022-01-26] MEDS ORDERED: HOLD METFORMIN - RECEIVED CONTRAST 20 ML VIAL IV SCH (20:30)
[2022-01-26] MEDS ORDERED: LORazepam INJ 2 MG/ML (ATIVAN) VIAL IVP ONE (20:30)
[2022-01-26] MEDS ORDERED: LIDOCAINE 1% INJ 20 ML VIAL ONE (20:54)
--- NOTE | 2022-01-26 21:22 | Diagnostic Imaging Report ---
PROCEDURE: CT angiography of the head and CT angiography of the neck with and without contrast. TECHNIQUE: Contiguous noncontrast images were obtained from the skull base through the vertex. After intravenous contrast administration, helical CT angiography of the neck was performed. Source data was reformatted into 3D MIP projections. Delayed post contrast acquisition was also obtained. Auto Exposure Controls were utilized during the CT exam to meet ALARA standards for radiation dose reduction. INDICATION: 57-year-old female, head and neck pain x 2 days. Left-sided tingling today. COMPARISON: None FINDINGS: CTA NECK: Aorta: Aortic arch is limited in evaluation with artifact present. Does appear relatively normal, with standard three vessel branching pattern. Right Common/Internal/External Carotid Artery: Patent and without significant stenosis. Left Common/Internal/External Carotid Artery: Faint filling defect origin left common carotid artery likely artifact. Patent and without significant stenosis. Vertebral arteries: Dominant left vertebral artery with a very small caliber right vertebral artery. Right vertebral artery may terminate as a PICA. Non-vascular: There is a suggested deformity at the tongue, nonspecific. The airway is patent. Question of a few small upper lobe pulmonary nodules. Largest left upper lobe, 3 mm. CTA HEAD: Anterior Circulation: The intracranial internal carotid arteries are patent. The bilateral middle cerebral arteries are patent and without stenosis. The anterior cerebral arteries are patent and without stenosis. Posterior Circulation: The bilateral intracranial segments of the vertebral arteries are patent. The basilar artery is patent and without stenosis. Left posterior cerebral arteries of persistent origin. Post Contrast Head: No concerning enhancement on delayed post-contrast imaging. IMPRESSION: 1. Negative CTA of the head. 2. Negative CTA of the neck. 3. Suggested deformity at the tongue. May be projectional, however, clinical correlation is recommended. Dictated by: Dictated on workstation # [id number]
--- NOTE | 2022-01-26 21:35 | Anesthesia-Procedure Note ---
Procedures/Interventions Procedure Start/Stop/Diagnosis Date of Procedure: Jan 26, 2022 Start Time: 21:00 Stop Time: 21:20 Lumbar Puncture Discussed Risk,Benefits: Yes Patient Consents: Yes Position: Lying, Left Sterile Technique: Yes Opening Pressure: 18.25 Fluid Color: Clear Spinal Needle Used: Other (22g pencan) Procedure Notes Spoke with patient about risk of procedure. Answered questions. Consent obtained. Local at L3/4 interspace. Attempts x 2 with 25g pencan. CSF observed in needle hub, would not free flow. Multiple adjustments made with each attempt to obtain free flow. Was unsuccessful. Needle changed to 22g pencan. Successful free flow of CSF obtained. Opening pressure as above. 4 vials of CSF obtained for laboratory testing to be ordered by ED physician. Needle removed. Band-aid placed at site. Patient to supine position. Informed patient to lay flat for 20 min. Use caution this weekend. No twisting, or picking up things over 10 lbs. SALEEM RIVER CRNA Jan 26, 2022 21:35
[2022-01-26 21:42] LABS: CSF GLUCOSE 55 MG/DL (50-80)
[2022-01-26 21:53] LABS: APPEARANCE,CSF CLEAR; COLOR,CSF COLORLESS; CSF TUBE NUMBER 4; RED BLOOD CELL,CSF 18 CELLS (0-0); WHITE BLOOD CELL,CSF 0 CELLS (0-5)
[2022-01-26] MEDS ORDERED: ONDA4TAB11 PO (22:35)
[2022-01-26 22:40] VITALS: BP 117/61
== END 2022-01-26 22:40 | disposition home or self-care (01) ==
LOC: EDUNIT# 17:59 → ER 18:01
DX: R51.9 Headache, unspecified (principal); R20.2 Paresthesia of skin; F12.20 Cannabis dependence, uncomplicated; Z20.822 Contact with and (suspected) exposure to COVID-19
CPT/HCPCS: 70450; 70496; 70498; 71045; 80053; 80306; 81000; 82945; 85025; 85610; 85730; 86141; 87070; 87088; 87205; 87498; 87636; 89051; 99285; G0480; 36415; 80320; 93005

== ENCOUNTER → 2022-03-13 | Outpatient (CLI) | payer MEDICAID ==
[~2022-03-13] MED LIST changes: +ONDA4TAB11 PO
--- NOTE | 2022-03-13 14:26 | Diagnostic Imaging Report ---
INDICATION: Postmenopausal state, M81.0 COMPARISON: None available, baseline exam FINDINGS: AP Spine L1-L4: [BMD (g/cm2): 1.064] [T-Score: -1.1] [Z-Score: 0.0] [BMD Previous: na] [BMD % Change: na] LT Hip Neck: [BMD (g/cm2): 0.833] [T-Score: -1.5] [Z-Score: -0.3] LT Hip Total: [BMD (g/cm2):0.828] [T-Score:-1.4] [Z-Score: -0.6] [BMD Previous: na] [BMD % Change: na] RT Hip Neck: [BMD (g/cm2):0.861] [T-Score:-1.3] [Z-Score:-0.1] RT Hip Total: [BMD (g/cm2):0.864] [T-score:-1.1] [Z-Score:-0.3] [BMD Previous:na] [BMD % Change:na] *Indicates significant change from prior examination based on 95% confidence level. World Health Organization criteria for BMD interpretation classify patients as Normal (T-score at or above -1.0), Osteopenic (T-score between -1.0 and -2.5) or Osteoporotic (T-score at or below -2.5). LIMITATIONS AND MODIFICATION: None. FRACTURE RISK (FRAX SCORE): The ten year probability of (%): Major Osteoporotic Fracture: [7.9] Hip Fracture: [0.7] IMPRESSION: 1. Osteopenia (Low bone mass). 2. Baseline examination. 3. See below National Osteoporosis Foundation guidelines on when to potentially initiate pharmacologic therapy. Based on the National Osteoporosis Foundation Guidelines, pharmacologic treatment should be initiated in any of the following, unless clinical conditions suggest otherwise: * Any patient with prior fragility fracture of the hip or vertebrae. A spine fracture indicates 5X risk for subsequent spine fracture and 2X risk for subsequent hip fracture. * Osteoporosis (T-score <-2.5). * Postmenopausal women and men age 50 and older with low bone mass/osteopenia (T-score between -1.0 and -2.5) by DXA and 10-year major osteoporotic fracture greater than 20% or a 10-year probability of hip fracture greater than 3%. These fracture risks are supplied above in the FRAX score, if applicable. * Clinician judgement and/or patient preferences may indicate treatment for people with 10-year fracture probabilities above or below these levels. Dictated by: Dictated on workstation # [id number]
== END ==
LOC: RAD 13:00
PROVIDERS: ATTEND Nurse Practitioner Family
DX: M81.0 Age-related osteoporosis without current pathological fracture (principal); M85.80 Other specified disorders of bone density and structure, unspecified site; Z78.0 Asymptomatic menopausal state
CPT/HCPCS: 77080

== ENCOUNTER 2023-01-23 05:47 | Outpatient (CLI) | payer MEDICAID ==
[~2023-01-23] VITALS: Ht 162.6 cm; Wt 64.4 kg
[~2023-01-23 05:47] MED LIST changes: +ALBU8.5H6 IH; -RT-ALBUINH IH
[2023-01-24] MEDS ORDERED: BUDE10.26 IH (14:11)
[2023-01-24] MEDS ORDERED: SIMV20TA26 PO (14:11)
[2023-01-24] MEDS ORDERED: PANT40TA52 PO (14:11)
[2023-01-24] MEDS ORDERED: LEVO5TAB12 PO (14:11)
[2023-01-24] MEDS ORDERED: TIOT18CA2 IH (14:11)
[2023-01-24] MEDS ORDERED: TRIA15OI9 TP (14:11)
[2023-01-24] MEDS ORDERED: VENL75TA2 PO (14:11)
[2023-01-24] MEDS ORDERED: MONT-40 PO (14:11)
== END 2023-01-24 14:14 | disposition home or self-care (01) ==
LOC: PREOP 05:47
PROVIDERS: ATTEND Surgery
DX: Z01.818 Encounter for other preprocedural examination (principal)

== ENCOUNTER 2023-02-05 08:57 | Day surgery (SDC) | payer MEDICAID ==
[~2023-02-05] VITALS: Ht 163 cm; Wt 64.4 kg
[~2023-02-05 08:57] MED LIST changes: +BUDE10.26 IH; +LEVO5TAB12 PO; +MONT-40 PO; +PANT40TA52 PO; +SIMV20TA26 PO; +TIOT18CA2 IH; +TRIA15OI9 TP; +VENL75TA2 PO
[2023-02-05] MEDS ORDERED: LACTATED RINGERS 1,000 ML IV STA (09:08)
[2023-02-05] MEDS ORDERED: LACTATED RINGERS 1,000 ML IV ONE (09:14)
[2023-02-05 09:15] VITALS: BP 122/61
[2023-02-05] MEDS ORDERED: PROPOFOL INJECTION 50 ML IV ONE (10:39)
[2023-02-05] MEDS ORDERED: MIDAZOLAM 2 MG/2 ML (VERSED) VIAL ONE (10:39)
[2023-02-05 11:05] VITALS: BP 94/51
--- NOTE | 2023-02-05 11:09 | Progress Note-Post Operative ---
Post-Operative Progess Note Surgeon (s)/Supervisory Clerk (s) Surgeon NASRIN CARRANZA DO Supervisory Clerk: na Pre-Operative Diagnosis screening colonoscopy Post-Operative Diagnosis Sigmoid Polyp Procedure & Operative Findings Date of Procedure 02/05/23 Procedure Performed/Findings Colonoscopy with cold biopsy polypectomy Anesthesia Type per ORGANIZATIONAL RESEARCH CONSULTANT Estimated Blood Loss Estimated blood loss (mL): none Specimens/Packing Specimens Removed Sigmoid polyp NASRIN CARRANZA DO February 05, 2023 11:09
[2023-02-05 11:10] VITALS: BP 92/50
--- NOTE | 2023-02-05 11:11 | Discharge Inst-Simple/Standard ---
Discharge Inst-Standard Patient Instructions/Follow Up Plan of Care/Instructions/FU: Debbie in two weeks Activity as Tolerated: Yes Discharge Diet: Regular Diet NASRIN CARRANZA DO February 05, 2023 11:11
[2023-02-05 11:15] VITALS: BP 103/59
[2023-02-05 11:43] VITALS: BP 103/59
--- NOTE | 2023-02-05 14:24 | Anesthesia-General Post-Op ---
MAC Patient Condition Mental Status/LOC: Same as Preop Cardiovascular: Satisfactory Nausea/Vomiting: Absent Respiratory: Satisfactory Pain: Controlled Complications: Absent Post Op Complications Complications None Follow Up Care/Instructions Patient Instructions None needed. Anesthesiology Discharge Order Discharge Order Patient is doing well, no complaints, stable vital signs, no apparent adverse anesthesia problems. No complications reported per nursing. HERNANDO BUSTAMANTE CRNA February 05, 2023 14:23
--- NOTE | 2023-02-05 20:40 | OPERATIVE REPORT ---
DATE OF SERVICE: 02/05/2023 PREOPERATIVE DIAGNOSIS: Screening colonoscopy. POSTOPERATIVE DIAGNOSIS: Sigmoid colon polyp. PROCEDURE: Colonoscopy with cold biopsy polypectomy. SURGEON: Nasrin Lewis DO ANESTHESIA: Per INTERACTIVE MEDIA PROJECT MANAGER. ESTIMATED BLOOD LOSS: None. COMPLICATIONS: None. INDICATIONS: The patient is a 58-year-old female, needing screening colonoscopy. She understands risks and benefits of procedure and wishes to proceed. Consent was signed and on chart. DESCRIPTION OF PROCEDURE: The patient was taken to endoscopy suite, placed in left lateral recumbent position. Timeout was performed. Digital rectal exam was performed. No palpable polyps, masses or ulcerations. Scope was inserted in the rectum all the way to the cecum with minimal difficulty. Prep was adequate. Scope was then slowly retracted back. No polyps, masses or ulcerations in the cecum, ascending, transverse, descending colon. In the sigmoid colon had a very small polyp, which cold biopsy polypectomy was performed. Scope was then continuously retracted back into the rectum where it was also retroflexed noting no other pathology. Scope was returned to its normal position, slowly withdrawn until completely removed. The patient tolerated the procedure well without complications, taken to recovery room in stable condition. RECOMMENDATIONS: The patient will need repeat colonoscopy in 5 years. Any issues before that, be seen at that time. The patient will follow up on biopsy results in 2 weeks. Any issues be seen at that time. Job ID: [id number] DocumentID: [id number] Dictated Date: 02/05/2023 11:09:16 Clinical Lab Scientist Date: 02/05/2023 20:38:00 Dictated By: NASRIN LEWIS DO
== END 2023-02-05 11:47 | disposition home or self-care (01) ==
LOC: ENDO 08:57
PROVIDERS: ATTEND Surgery
DX: Z12.11 Encounter for screening for malignant neoplasm of colon (principal); K63.5 Polyp of colon; Z28.310 Unvaccinated for COVID-19; Z87.891 Personal history of nicotine dependence